=== PATIENT | male | born 1995 | race Caucasian/White ===

== ENCOUNTER 2017-01-05 08:17 | Inpatient (IN) | payer OTHER ==
[~2017-01-05] VITALS: Ht 177.8 cm; Wt 72.6 kg
[2017-01-06] VITALS (7 sets, daily range): BP systolic 90–131; BP diastolic 53–80
--- NOTE | 2017-01-06 00:30 | NUR ---
INTAKE ASSESSMENT NOTE Patient is alert and orientated X3, stable and able to ambulate independently. Patient denies S/I or H/I at this time, no history of seizures.Vitals signs are stable GA=917/72, HR=67, Spo2=97% with RA, RR=14, even and unlabored, lungs clear upon auscultation, abdomen soft and non- distended. Pt denies nausea, vomiting and diarrhea. LAST COWS= 3, Height=5'10', [id number]. Pt. can be admitted to [facility] . Safety measures in place. call light kept within reach. patient endorsed to boiler assistant operator nurse, all pertinent information discussed. will continue to monitor closely.
[2017-01-06] MEDS ORDERED: MAG HYDROX/AL HYDROX/SIMETH 30 ML LIQUID UDC PO PRN (00:45)
[2017-01-06] MEDS ORDERED: MIRALAX 17 GM POWD.PACK PO PRN (00:45)
[2017-01-06] MEDS ORDERED: ACETAMINOPHEN 325 MG TABLET PO PRN (00:45)
[2017-01-06] MEDS ORDERED: ONDANSETRON ODT 4 MG TAB.RAPDIS SL PRN (00:45)
[2017-01-06] MEDS ORDERED: MAGNESIUM HYDROXIDE 30 ML LIQUID UDC PO PRN (00:45)
[2017-01-06] MEDS ORDERED: BUPRENORPHINE HCL 2 MG TAB.SUBL SL PRN ×2 (00:45→13:15)
[2017-01-06] MEDS ORDERED: diphenhydrAMINE 50 MG CAPSULE PO PRN (00:45)
[2017-01-06] MEDS ORDERED: IBUPROFEN 400 MG TABLET PO PRN (00:45)
[2017-01-06] MEDS ORDERED: LOPERAMIDE HCL 2 MG CAPSULE PO PRN ×2 (00:45)
[2017-01-06] MEDS ORDERED: CLONIDINE HCL 0.1 MG TABLET PO PRN (00:45)
[2017-01-06] MEDS ORDERED: DICYCLOMINE HCL 20 MG TABLET PO PRN (00:45)
[2017-01-06] MEDS ORDERED: HYDROXYZINE PAMOATE 25 MG CAPSULE PO PRN (00:45)
[2017-01-06] MEDS ORDERED: METHOCARBAMOL 750 MG TABLET PO PRN (00:45)
--- NOTE | 2017-01-06 01:20 | NUR ---
ADMISSION NOTE : Patient is a 21 year old male admitted to [facility] on 01/06/17 at 0105. Patient is under the care of Dr. Stapleton for Heroin dependence. Patient denies S/I or H/I at this time, no history of seizures. NKA. Full code. Regular diet. Patient denies hospitalizations within last 30 days, falls within past 12 months, doesn't have Primary Care Provider at this time. He denies vaccinations in the past. Patient ambulates with steady gait. Patient states bowel habits are normal. Pt. was able to provide UDS, but refused blood draw now and in A.M. Pt. hasn't home medication.Upon admission ZD=426/72, HR=67, Spo2=97% with RA, RR=14, even and unlabored, lungs clear upon auscultation, abdomen soft and non- distended. Pt denies nausea, vomiting and diarrhea. LAST COWS= 3, Height=5'10', [id number]. Safety measures in place. call light kept within reach. patient endorsed to date night caregiver nurse, all pertinent information discussed. will continue to monitor closely. SUBSTANCE ABUSE HISTORY : HEROIN 1.5gm QD smokes last 3 months, last use on 01/05/2017, uses since 2010 Pt. smokes 20 cigarettes QD since 2010 [place] HISTORY : X14 Detox. Attempts X12 Rehab. Attempts PAST MEDICAL HISTORY : Left foot fracture when was teenager (can't remember exact age). Left wrist foot fracture when was teenager (can't remember exact age). FAMILY HISTORY : Mother, father , 4 brothers and 2 sisters are in good health.
[2017-01-06 01:35] LABS: *AMPHETAMINE, URINE NEGATIVE (NEGATIVE); *BARBITURATE, URINE NEGATIVE (NEGATIVE); *CANNABINOID, URINE NEGATIVE (NEGATIVE); *COCCAINE, URINE NEGATIVE (NEGATIVE); *OPIATE, URINE POSITIVE (NEGATIVE); *PHENCYCLIDINE SCREEN,URINE NEGATIVE (NEGATIVE)
--- NOTE | 2017-01-06 06:53 | NUR ---
END OF SHIFT NOTE : Patient is a 21 year old male admitted to [facility] on 01/06/17 at 0105. Patient is under the care of Dr. Stapleton for Heroin dependence. Patient denies S/I or H/I at this time, no history of seizures. NKA. Full code. Regular diet. Pt. refused blood draw now and in A.M. No PRNs were given during my shift. V/S remain WNL. RR=16, even and unlabored, lungs clear upon auscultation, abdomen soft and non- distended. Pt denies nausea, vomiting and diarrhea. LAST COWS= 3 at 0400 , BJYSRN=045 ml, voided x 1, slept 4 hours. Safety measures in place. call light kept within reach. patient endorsed to philosophy specialist nurse, all pertinent information discussed. will continue to monitor closely.
--- NOTE | 2017-01-06 07:30 | NUR ---
START SHIFT NOTE Rcvd endorsement from ongoing nurse, client is in bed, he is a/o to name, time, place. He presents with flat affect, states "I don't have withdrawal symptoms yet, but I know is going to get real bad."Skin warm to touch, RR 18 even, non-labored. Admitted to [facility] for withdrawal from Opiates. No history of seizures. NKA. Full code. Regular diet. Client refused blood draw. No PRNs were given, he slept 4 hrs. Last COWS 3. Call light within reach. Will continue to monitor.
[2017-01-06] MEDS ORDERED: TUBERCULIN,PURIF.PROT.DERIV. 5 TU/0.1 ML TEST ID ONE (09:00)
[2017-01-06] MEDS: MULTIVITAMINS,THERAPEUTIC TABLET PO SCH (09:39)
--- NOTE | 2017-01-06 10:00 | NUR ---
Client refused labs drawn, TB test or c-xray for medical clearance for active TB. Dr. Stapleton notified, NNO at this time.
[2017-01-06] MEDS: GABAPENTIN 300 MG CAPSULE PO SCH (14:51)
--- NOTE | 2017-01-06 18:59 | NUR ---
START SHIFT NOTE Endorsed to incoming nurse, client is in bed, he is a/o x 4, he presents with some anxiety, he decline any PRN meds for anxiety, he will request funes he starts presenting with wd symptoms.. Admitted to [facility] for withdrawal from Opiates. No history of seizures. NKA. Full code. Regular diet. Client refused blood draw, TB test or C-XRAY Dr. Stapleton notified, NNO at this time. No PRNs were given, client was not compliant with group therapy. Adequate PO intake 1515, void x 4.. V/S remain WNL. Last COWS 5 at 1600. PRN Subutex available for COWS =>12, 4 day Subutex taper schedule to start 01/07/17. Call light within reach. Safety measures rendered. Will continue to monitor.
--- NOTE | 2017-01-06 19:15 | NUR ---
START OF SHIFT NOTE : Patient is a 21 year old male admitted to [facility] on 01/06/17 at 0105. Patient is under the care of Dr. Stapleton for Heroin dependence. Patient denies S/I or H/I at this time, no history of seizures. NKA. Full code. Patient denies S/I or H/I at this time, no history of seizures. NKA. Full code. Regular diet. Pt. refused blood draw and X-Ray during the day. Pt denies nausea, vomiting and diarrhea. Pt reports not having any allergies. Pt continues on fall and seizure precautions. Medication Tolerated well. Pt remains partially compliant with the treatment plan. Patient encouraged adequate PO fluid intake as tolerated. Upon assessment patient presented with mild anxiety, and barely sweating. Detox medication effective at reducing withdrawal symptoms. Patient encouraged to attend group therapies/sessions to learn new coping skills to recent relapse. Pt. placed on 4 day Subutex taper , will be started on 01/07/2017. Safety measures in place. call light kept within reach. patient endorsed to assistant shift supervisor nurse, all pertinent information discussed. will continue to monitor closely
[2017-01-06] MEDS ORDERED: GABAPENTIN 300 MG CAPSULE PO SCH (21:00)
--- NOTE | 2017-01-06 21:00 | NUR ---
PRN BENADRYL Pt. complains of sleeplessness. PRN BENADRYL given as ordered. Safety measures in place. call light kept within reach. patient endorsed to night monitor nurse, all pertinent information discussed. will continue to monitor closely.
--- NOTE | 2017-01-06 22:00 | NUR ---
REASSESSMENT MALIHA Pt. is sleeping, RR=16, even and unlabored. Safety measures in place. call light kept within reach. patient endorsed to scene shifter nurse, all pertinent information discussed. will continue to monitor closely
--- NOTE | 2017-01-07 04:00 | NUR ---
VS CHECK REFUSED Pty. refused VS check in the night, is upset because his taper starts today, not yesterday. Safety measures in place. call light kept within reach. patient endorsed to night order selector nurse, all pertinent information discussed. will continue to monitor closely.
--- NOTE | 2017-01-07 06:45 | NUR ---
END OF SHIFT NOTE : Patient is a 21 year old male admitted to [facility] on 01/06/17 at 0105. Patient is under the care of Dr. Stapleton for Heroin dependence. Patient denies S/I or H/I at this time, no history of seizures. NKA. Full code. Patient denies S/I or H/I at this time, no history of seizures. NKA. Full code. Regular diet. Pt. refused blood draw and X-Ray during the day. Pt denies nausea, vomiting and diarrhea. Pt reports not having any allergies. Pt continues on fall and seizure precautions. Medication Tolerated well. Pt remains partially compliant with the treatment plan. Patient encouraged adequate PO fluid intake as tolerated. Upon assessment patient presented with mild anxiety, and barely sweating. Patient encouraged to attend group therapies/sessions to learn new coping skills to recent relapse. Pt. refused VS check in A.M. Pt remains partially compliant with the treatment plan. PRN BENADRYL given during my shift. V/S remain WNL. RR=16, even and unlabored, lungs clear upon auscultation, abdomen soft and non- distended. Pt denies nausea, vomiting and diarrhea. LAST COWS=3 at 0400 , INTAKE= 710 ml, voided x 2, slept 10 hours. Safety measures in place. call light kept within reach. patient endorsed to table games shift manager nurse, all pertinent information discussed. will continue to monitor closely
--- NOTE | 2017-01-07 07:43 | NUR ---
START OF SHIFT NOTE patient is alert and orientated X4. Respirations are even and unlabored. Patient slept 10 hours last night according to night nurse. LAst COWS 3 per night nurse. patient refused vitals early this morning per ngt nurse. patient is starting a 4 day subutex taper today. No PRNs given last night. all safety measures in place. Will continue to monitor patient.
[2017-01-07 08:00] VITALS: BP 129/78
[2017-01-07] MEDS ORDERED: 4 DAY TAPER BUPRENORPHINE -SERENITY PROTOCOL SL PRN (09:00)
[2017-01-07] MEDS ORDERED: BUPRENORPHINE HCL 2 MG TAB.SUBL SL ONE (09:02)
[2017-01-07] MEDS: GABAPENTIN 300 MG CAPSULE PO SCH ×2 (09:25→14:01)
[2017-01-07] MEDS: BUPRENORPHINE HCL 2 MG TAB.SUBL SL SCH ×2 (09:25→14:01)
[2017-01-07] MEDS: MULTIVITAMINS,THERAPEUTIC TABLET PO SCH (09:25)
[2017-01-07 12:00] VITALS: BP 122/85
--- NOTE | 2017-01-07 14:57 | NUR ---
AMA NOTE Patient left AMA, refused to comply with treatment. Patient educated about the risks and consequences of leaving AMA, patient verbalized understanding but was adamant about leaving. Multiple staff members including doctors, patient advocates and nurses attempted to reason with patient without any success. Vital signs WNL, skin intact. Patient denied any suicidal or homicidal ideations. Patient's psychiatrist and MD were notified and aware. Patient was given a list of community resources, AMA forms explained and signed. All belongings returned to patient. Patient left facility AMA on 01/07/17 at 1457.
[2017-01-08] MEDS ORDERED: BUPRENORPHINE HCL 2 MG TAB.SUBL SL SCH ×2 (09:00→15:00)
[2017-01-09] MEDS ORDERED: BUPRENORPHINE HCL 2 MG TAB.SUBL SL SCH (09:00)
[2017-01-10] MEDS ORDERED: BUPRENORPHINE HCL 2 MG TAB.SUBL SL SCH (09:00)
== END 2017-01-07 14:57 | disposition left against medical advice (07) | DRG 894 ==
LOC: SRC 01-06 00:08
PROVIDERS: ADMIT Internal Medicine; ATTEND Internal Medicine
PROC: HZ2ZZZZ Detoxification Services for Substance Abuse Treatment (ICD-10-PCS; principal; 2017-01-06)
DX: F11.23 Opioid dependence with withdrawal (principal); F17.210 Nicotine dependence, cigarettes, uncomplicated; Z91.19 Patient's noncompliance with other medical treatment and regimen
CPT/HCPCS: 80307; 80361; 86580; Q0163